=== PATIENT | male | born 1975 ===

== ENCOUNTER 2018-02-12 20:53 | Emergency (ER) | payer SELFPAY ==
[2018-02-12 21:05] VITALS: TEMP 97.9; O2SAT 98
[2018-02-12] MEDS ORDERED: Sodium Chloride 0.9% 1,000 ML IV STA (21:30)
--- NOTE | 2018-02-12 21:38 | ED PDOC ---
Hyperglycemia/Hypoglycemia Time Seen by Provider: 02/12/18 21:07 Chief Complaint (Nursing): High Blood Sugar Chief Complaint (Provider): High Blood Sugar History Per: Patient History/Exam Limitations: no limitations Onset/Duration Of Symptoms: Hrs Current Symptoms Are (Timing): Still Present Current Diabetic Medications: Oral Medication Causative (Exacerbating) Factor(s): Accidentially Took To Much Medication : The patient does not have any of the infectious symptoms listed except for those marked. Additional Complaint(s): 43 year old male presents to the ED for elevated glucose. He was seen yesterday at [facility] and newly diagnosed with diabetes, started on metformin. Patient checked his glucose at home today and found it to be > 500. He then used a friends insulin in addition to his metformin. Denies any nausea, vomiting, diarrhea, dizziness, weakness, polydipsia, polyuria, or blurred/double vision. Of note patient was also treated for sinusitis yesterday, currently on Bactrim. Denies fever. Past Medical History Reviewed: Historical Data, Nursing Documentation, Vital Signs Vital Signs: Last Vital Signs Temp 97.9 F 02/12/18 20:59 Pulse 112 H 02/12/18 20:59 Resp 16 02/12/18 20:59 BP 143/88 02/12/18 20:59 Pulse Ox 98 02/12/18 20:59 - Medical History PMH: Diabetes - Surgical History Surgical History: Appendectomy - Family History Family History: States: No Known Family Hx - Allergies Allergies/Adverse Reactions: Allergies Allergy/AdvReac Type Severity Reaction Status Date / Time No Known Allergies Allergy Verified 02/12/18 21:03 Review of Systems ROS Statement: Except As Marked, All Systems Reviewed And Found Negative Constitutional: Negative for: Fever, Chills, Other (polydipsia) Eyes: Negative for: Vision Change ENT: Positive for: Other (Sinus congestion) Cardiovascular: Negative for: Chest Pain, Palpitations Respiratory: Negative for: Shortness of Breath Gastrointestinal: Negative for: Nausea, Vomiting, Diarrhea Genitourinary Male: Negative for: Frequency Neurological: Negative for: Weakness, Dizziness Physical Exam - Reviewed Nursing Documentation Reviewed: Yes Vital Signs Reviewed: Yes - Physical Exam Appears: Positive for: Non-toxic, No Acute Distress Head Exam: Positive for: ATRAUMATIC, NORMOCEPHALIC Skin: Positive for: Normal Color, Warm, Dry Eye Exam: Positive for: Normal appearance, EOMI, PERRL Neck: Positive for: Normal, Painless ROM Cardiovascular/Chest: Positive for: Regular Rate, Rhythm. Negative for: Murmur Respiratory: Positive for: Normal Breath Sounds. Negative for: Accessory Muscle Use, Respiratory Distress Pulses-Dorsalis Pedis (L): 2+ Pulses-Dorsalis Pedis (R): 2+ Gastrointestinal/Abdominal: Positive for: Normal Exam, Soft. Negative for: Tenderness Extremity: Positive for: Normal ROM. Negative for: Calf Tenderness, Swelling Neurologic/Psych: Positive for: Alert, Oriented (x3) - Laboratory Results Result Diagrams: 02/12/18 21:54 02/12/18 21:54 - ECG O2 Sat by Pulse Oximetry: 98 (RA) Pulse Ox Interpretation: Normal Medical Decision Making Medical Decision Making: Time: 21:30 Initial Impression: 43 y/o male with hyperglycemia Initial Plan: Routine blood work ordered. Initiated IV fluids. Accucheck on arrival shows FS is 150. Scribe Attestation: Documented by Cesilia Agustin, acting as a scribe for Dr. Alonzo Pagan MD. Provider Scribe Attestation: All medical record entries made by the Scribe were at my direction and personally dictated by me. I have reviewed the chart and agree that the record accurately reflects my personal performance of the history, physical exam, medical decision making, and the department course for this patient. I have also personally directed, reviewed, and agree with the discharge instructions and disposition. Disposition - Clinical Impression Clinical Impression: Diabetic complication - Patient ED Disposition Is Patient to be Admitted: No - Disposition Referrals: [facility] [Outside] Disposition: Routine/Home Disposition Time: 23:35 Condition: FAIR Instructions: Diabetes Diet , Hyperglycemia, Adult, Type 2 Diabetes Forms: [id number] (Nepali) Print Language: MONGOLIAN
[2018-02-12 21:59] LABS: BASO # 0.1 K/uL (0.0-0.2); BASO % 0.4 % (0.0-2.0); EOS % 0.4 % (0.0-4.0); LYMPH # 1.2 K/uL (1.0-4.3); LYMPH % 8.9 % (20.0-40.0); MEAN CELL VOLUME 81.8 fl (80.0-94.0); MEAN CORPUSCULAR HEMOGLOBIN 27.1 pg (27.0-31.0); MEAN CORPUSCULAR HGB CONC 33.1 g/dL (33.0-37.0); MEAN PLATELET VOLUME 8.9 fl (7.2-11.7); MONO # 0.7 K/uL (0.0-0.8); NEUT # 11.9 K/uL (1.8-7.0); NEUT % 85.3 % (50.0-75.0); PLATELET COUNT 293 K/uL (130-400); RBC 5.54 Mil/uL (4.40-5.90); RED CELL DISTRIBUTION WIDTH 13.7 % (11.5-14.5); WHITE BLOOD COUNT 13.9 K/uL (4.8-10.8)
[2018-02-12 22:14] LABS: ALB/GLOB RATIO 1.1 (1.0-2.1); ALBUMIN 4.1 g/dL (3.5-5.0); ALT/SGPT 30 U/L (21-72); AST/SGOT 28 U/L (17-59); BLOOD UREA NITROGEN 19 mg/dl (9-20); CALCIUM 9.6 mg/dL (8.4-10.2); GFR NON-AFRICAN AMERICAN > 60
[2018-02-12 23:43] LABS: ANISOCYTOSIS SLIGHT; HYPOCHROMIC SLIGHT; LARGE PLATELETS PRESENT; LYMPHOCYTE 8 % (20-50); MONOCYTE 6 % (0-10); NEUTROPHIL 83 % (42-75); PLATELET ESTIMATE NORMAL (NORMAL); REACTIVE LYMPHOCYTES 3 % (0-0); TOTAL CELLS COUNTED 100
[2018-02-13 00:15] VITALS: BP 125/73; PULSE 88; RESP 18
== END 2018-02-13 00:14 | disposition home or self-care (01) ==
LOC: H.ER 20:53 → EDBD 20:53 → H.ER 02-13 00:14
DX: E11.65 Type 2 diabetes mellitus with hyperglycemia (principal)
CPT/HCPCS: 80053; 82948; 85025; 99283; J7030